=== PATIENT | male | born 1965 | race Caucasian/White ===

== ENCOUNTER → 2016-11-03 | Day surgery (SDC) | payer MEDICAID ==
[~2016-11-03] MED LIST: ANGIOMAX 250 MG VIAL IV ONE; ASPI-231 PO; CARV6.2551 PO; EPTIFIBATIDE INJ (2MG/ML) 10ML VIAL IV ONE; FURO40TA4 PO; HEPARIN SODIUM (PORCINE) 5000 UNITS/ML 1ML VIAL ONE; IODIXANOL 320MG/ML 100ML BTL IV ONE; LIDOCAINE 2%HCL (LOCAL ANESTH.) INJ 20ML MDV ONE; LISI-275 PO; LOVA20TA4 PO; MIDAZOLAM HCL 1MG/1ML-2 ML VIAL ONE; SODIUM CHL 0.9% 0 ML ONE; SPIR25TA89 PO; VERAPAMIL 2.5MG/ML INJ 2ML VIAL IV ONE; fentaNYL CITRATE 100 MCG/2 ML VL ONE
== END | disposition home or self-care (01) ==
LOC: CATH 06:51
PROVIDERS: ATTEND Internal Medicine
DX: I42.9 Cardiomyopathy, unspecified (principal)
CPT/HCPCS: 93458; C1760; C1769; C1894; J1644; J3010; J7030; 93005; 99152; J2250; Q9967